=== PATIENT | male | born 1930 | race Caucasian/White ===

== ENCOUNTER → 2022-01-10 | Outpatient (CLI) | payer MEDICARE ==
[~2022-01-10] VITALS: Ht 175.3 cm; Wt 88.0 kg
== END ==
LOC: EROP 10:10
DX: Z53.9 Procedure and treatment not carried out, unspecified reason (principal)
CPT/HCPCS: M0222; Q0222

== ENCOUNTER → 2022-03-05 | Outpatient (CLI) | payer MEDICARE | LOC: NM 12:35 | DX: K31.84 Gastroparesis (principal) | CPT/HCPCS: 78264; A9541 ==